=== PATIENT | female | born 1970 | race Caucasian/White ===

== ENCOUNTER 2016-10-23 13:07 | Emergency (ER) | payer BC ==
[~2016-10-23] VITALS: Ht 167.6 cm; Wt 61.7 kg
[2016-10-23 13:07] VITALS: BP 136/79
--- NOTE | 2016-10-23 13:07 | NUR ---
Patient BIBA BLS, transferred to bed 6. RN evaluating patient at bedside.
[2016-10-23] MEDS ORDERED: ALPRAZolam 0.5 MG TAB PO STA (13:18)
--- NOTE | 2016-10-23 13:19 | NUR ---
45/F bran from her job for evaluation of anxiety and stress at work. Pt states "I had a conversation at work with my boss and I feel under a lot of stress." Pt works at an apartment complex as cleaning services. Pt states "My job has me under a lot of stress." Denies stress at home. Pt tearful, c/o difficulty breathing and sharp pain to center of chest. AOX4, macedonian speaking. VSS.
--- NOTE | 2016-10-23 14:00 | NUR ---
Pt appears to be resting comfortably at this time. No distress noted.
--- NOTE | 2016-10-23 14:07 | NUR ---
Pt will call sister to come pick her up and take her home.
[2016-10-23 15:13] VITALS: BP 130/70
--- NOTE | 2016-10-23 15:13 | NUR ---
Patient discharged with v/s stable. Written and verbal after care instructions given and explained. Patient alert, oriented and verbalized understanding of instructions. Ambulatory with steady gait. All questions addressed prior to discharge. ID band removed. Patient advised to follow up with PMD. Rx of HYDROXYZINE PAMOATE given. Patient educated on indication of medication including possible reaction and side effects. Opportunity to ask questions provided and answered.
--- NOTE | 2016-10-23 15:13 | NUR ---
PATIENT PROVIDED PACKET FOR EMOTIONAL COUNSELING WHEN NEEDED BY DR. RIVERA. PATIENT STATED OK FOR CZECH DC INSTRUCTION.
== END 2016-10-23 15:13 | disposition home or self-care (01) ==
LOC: MED 13:07
DX: F43.9 Reaction to severe stress, unspecified (principal); F41.9 Anxiety disorder, unspecified; Z88.0 Allergy status to penicillin
CPT/HCPCS: 99284